=== PATIENT | male | born 1945 ===

== ENCOUNTER 2025-05-07 06:18 | Day surgery (SDC) | payer MEDICARE, OTHER, SELFPAY ==
[2025-05-07 10:06] VITALS: BMI 22.4
[2025-05-07 10:09] VITALS: BP 150/83; BMI 22.4
[2025-05-07 13:35] VITALS: BP 133/79
[2025-05-07 13:45] VITALS: BP 140/81
[2025-05-07 14:00] VITALS: BP 144/80
== END 2025-05-07 14:28 | disposition home or self-care (01) ==
LOC: GI 06:18
PROVIDERS: ATTENDING PHYSICIAN Internal Medicine Gastroenterology
DX: R93.3 Abnormal findings on diagnostic imaging of other parts of digestive tract (principal); C25.9 Malignant neoplasm of pancreas, unspecified; R93.5 Abnormal findings on diagnostic imaging of other abdominal regions, including retroperitoneum; C78.7 Secondary malignant neoplasm of liver and intrahepatic bile duct; R59.0 Localized enlarged lymph nodes; K86.89 Other specified diseases of pancreas; Z85.038 Personal history of other malignant neoplasm of large intestine
CPT/HCPCS: 43238; 88173; 88305; 88341; 88342